=== PATIENT | female | born 1990 | race Caucasian/White ===

== ENCOUNTER 2017-03-30 05:45 | Emergency (ER) | payer OTHER ==
[~2017-03-30] VITALS: Ht 172.7 cm; Wt 108.9 kg
[~2017-03-30 05:45] MED LIST: AMOXIL500 MG PO; ASPIRIN81 M1 PO; ASPIRIN81 MG PO; BACTRIM DS 8001 TA1 PO; CIPRODEX 0.3%-7.5 ML OT; ELIMITE 5%60 GM PO; FLAGYL500 MG PO; FLINTSTONES COM1 CT1 PO; FOLIC ACID0.4 MG PO; FOLTABS PO; HYDROCODONE BIT1 T11 PO; KEFLEX500 MG PO; MACROBID100 M1 PO; MOTRIN600 MG PO; MOTRIN800 MG PO; MYLICON, MYLANT80 MG PO; NAPROSYN500 MG PO; NKHM; OVRAL-21 50 MCG1 TAB PO; PENICILLIN VK500 MG PO; PERCOCET 325 MG1 TA2 PO; PERCOCET 325 MG1 TA5 PO; PHENERGAN W/DM120 ML PO; PHENERGAN25 M1 PO; PRENATAL1 TA1 PO; Peridex 473 ML473 ML PO; VICODIN 5/500 505 MG PO; ZITHROMAX Z PA250 MG PO; ZOFRAN ODT4 MG PO; ZOFRAN ODT4 MG SL; ZOFRAN8 MG PO
[2017-03-30 05:49] VITALS: BP 141/91
[2017-03-30] MEDS ORDERED: CLINDAMYCIN150 MG PO (06:44)
[2017-03-30] MEDS ORDERED: TRAMADOL HCL50 MG PO (06:44)
== END 2017-03-30 06:47 | disposition home or self-care (01) ==
LOC: ED 05:45
DX: K08.89 Other specified disorders of teeth and supporting structures (principal)

== ENCOUNTER 2017-11-18 15:31 | Emergency (ER) | payer OTHER ==
[~2017-11-18] VITALS: Ht 175.2 cm; Wt 122.5 kg
[~2017-11-18 15:31] MED LIST changes: +CLINDAMYCIN150 MG PO; +TRAMADOL HCL50 MG PO
[2017-11-18] MEDS ORDERED: ASPIR LOW81 MG PO (16:13)
[2017-11-18] MEDS ORDERED: PRENATA CHEWAB1 EACH PO (16:13)
[2017-11-18 16:40] LABS: BILIRUBIN NEGATIVE (NEGATIVE); BLOOD 3+ (NEGATIVE); CLARITY SL CLOUDY (CLEAR); COLOR RED (YELLOW); GLUCOSE NEGATIVE (NEGATIVE); KETONE TRACE (NEGATIVE); LEUKO ESTERASE 1+ (NEGATIVE); NITRITE POSITIVE (NEGATIVE); SPECIFIC GRAVITY 1.025 (1.005-1.030)
[2017-11-18 16:52] LABS: RBC TNTC rbc/hpf (0-2)
[2017-11-18 17:01] LABS: BASO % 0.1 % (0.0-1.0); EOS # 0.3 10*3/uL (0.0-0.4); EOS % 2.5 % (1.0-4.0); HEMATOCRIT 36.7 % (37.0-47.0); LYMPH # 3.8 10*3/uL (1.3-4.4); LYMPH % 28.6 % (27.0-41.0); MEAN CELL VOLUME 77.9 fl (81.0-99.0); MEAN CORPUSCULAR HGB 25.5 pg (27.0-31.0); MEAN CORPUSCULAR HGB CONC 32.7 g/dl (33.0-37.0); MEAN PLATELET VOLUME 8.7 fl (9.6-12.3); MONO # 0.8 10*3/uL (0.1-1.0); MONO % 6.2 % (3.0-9.0); NEUT # 8.4 10*3/uL (2.3-7.9); NEUT % 62.5 % (47.0-73.0); PLATELET COUNT AUTOMATED 241 10*3/uL (130-400); RED BLOOD COUNT 4.71 10*6/uL (4.10-5.10); RED CELL DISTRI WIDTH 15.2 % (0-14.5); WHITE BLOOD COUNT 13.4 10*3/uL (4.8-10.8)
[2017-11-18 17:17] LABS: ALBUMIN 3.4 gm/dl (3.1-4.5); ALKALINE PHOSPHATASE 69 U/L (45-117); BUN 5 mg/dl (7-24); CHLORIDE 106 mmol/L (98-107); CREATININE 0.72 mg/dL (0.55-1.02); POTASSIUM 3.6 mmol/L (3.5-5.1); SGOT/AST 8 IU/L (3-35); SGPT/ALT 21 U/L (12-78); SODIUM 139 mmol/L (136-145); TOTAL PROTEIN 7.7 gm/dL (6.4-8.2)
[2017-11-18 18:00] VITALS: BP 136/68
[2017-11-18] MEDS ORDERED: AMINOPHYLLIN200 MG PO (18:27)
[2017-11-18] MEDS ORDERED: NORCO 5-325 TA1 EACH PO (18:27)
== END 2017-11-18 18:25 | disposition home or self-care (01) ==
LOC: ED 15:31
PROVIDERS: Physician Assistant
DX: O20.0 Threatened abortion (principal); Z3A.01 Less than 8 weeks gestation of pregnancy; Z79.899 Other long term (current) drug therapy; Z79.82 Long term (current) use of aspirin

== ENCOUNTER 2018-02-23 13:39 | Emergency (ER) | payer OTHER ==
[~2018-02-23] VITALS: Ht 172.7 cm; Wt 128.4 kg
[~2018-02-23 13:39] MED LIST changes: +AMINOPHYLLIN200 MG PO; +ASPIR LOW81 MG PO; +NORCO 5-325 TA1 EACH PO; +PRENATA CHEWAB1 EACH PO
[2018-02-23 13:42] VITALS: BP 135/71
[2018-02-23] MEDS ORDERED: CYCLOBENZAPRINE10 MG PO (14:02)
[2018-02-23] MEDS ORDERED: IBU800 MG PO (14:02)
== END 2018-02-23 15:34 | disposition home or self-care (01) ==
LOC: ED 13:39
DX: M54.5 Low back pain (principal); Z79.899 Other long term (current) drug therapy; Z79.82 Long term (current) use of aspirin; X50.1XXA Overexertion from prolonged static or awkward postures, initial encounter; Y93.89 Activity, other specified; Y92.098 Other place in other non-institutional residence as the place of occurrence of the external cause; Y99.9 Unspecified external cause status

== ENCOUNTER 2019-05-12 10:42 | Emergency (ER) | payer OTHER ==
[~2019-05-12] VITALS: Ht 172.7 cm; Wt 140.6 kg
[~2019-05-12 10:42] MED LIST changes: +CYCLOBENZAPRINE10 MG PO; +IBU800 MG PO
[2019-05-12] MEDS ORDERED: Motrin,Rufen800 MG PO (14:17)
[2019-05-12] MEDS ORDERED: CYCLOBENZAPRINE5 M3 PO (14:17)
== END 2019-05-12 14:35 | disposition home or self-care (01) ==
LOC: ED 10:42
DX: S39.012A Strain of muscle, fascia and tendon of lower back, initial encounter (principal); R51 Headache; V49.88XA Car occupant (driver) (passenger) injured in other specified transport accidents, initial encounter; Y93.89 Activity, other specified; Y92.413 State road as the place of occurrence of the external cause; Y99.9 Unspecified external cause status

== ENCOUNTER 2019-11-10 18:27 | Emergency (ER) | payer OTHER ==
[~2019-11-10] VITALS: Ht 175.2 cm; Wt 131.5 kg
[~2019-11-10 18:27] MED LIST changes: +CYCLOBENZAPRINE5 M3 PO; +Motrin,Rufen800 MG PO
[2019-11-10 18:28] VITALS: BP 132/90
[2019-11-10] MEDS ORDERED: ALLEGRA-D 24 H1 EACH PO (19:51)
[2019-11-10] MEDS ORDERED: FLONASE ALLERG9.9 ML NAS (19:51)
== END 2019-11-10 19:53 | disposition home or self-care (01) ==
LOC: ED 18:27
DX: J10.1 Influenza due to other identified influenza virus with other respiratory manifestations (principal); R19.7 Diarrhea, unspecified; Z79.899 Other long term (current) drug therapy

== ENCOUNTER → 2021-05-22 | Outpatient (CLI) | payer OTHER ==
[~2021-05-22] MED LIST changes: +ALLEGRA-D 24 H1 EACH PO; +FLONASE ALLERG9.9 ML NAS
== END | disposition home or self-care (01) ==
LOC: US 05-05 13:00
PROVIDERS: ATTEND Nurse Practitioner Women's Health
DX: N92.1 Excessive and frequent menstruation with irregular cycle (principal)

== ENCOUNTER → 2022-04-23 | Outpatient (CLI) | payer OTHER | END | disposition home or self-care (01) | LOC: US 09:00 | PROVIDERS: ATTEND Nurse Practitioner Women's Health | DX: N92.1 Excessive and frequent menstruation with irregular cycle (principal); D25.9 Leiomyoma of uterus, unspecified ==

== ENCOUNTER → 2024-10-16 | Outpatient (CLI) | payer OTHER | END | disposition home or self-care (01) | LOC: US 12:27 | PROVIDERS: ATTEND Nurse Practitioner Women's Health | DX: D25.1 Intramural leiomyoma of uterus (principal); N93.9 Abnormal uterine and vaginal bleeding, unspecified ==

== ENCOUNTER → 2024-11-13 | Outpatient (CLI) | payer OTHER | END | disposition home or self-care (01) | LOC: LAB 13:08 | PROVIDERS: ATTEND Internal Medicine | DX: E11.9 Type 2 diabetes mellitus without complications (principal) ==